=== PATIENT | male | born 1980 | race Caucasian/White ===

== ENCOUNTER 2017-10-07 10:24 | Emergency (ER) | payer MEDICAID, OTHER ==
[~2017-10-07] VITALS: Ht 170.2 cm; Wt 67.4 kg
[~2017-10-07 10:24] MED LIST: NYST1000 PO; ONDA4TAB6 PO; PANT40TA4 PO
[2017-10-07] MEDS ORDERED: ondansetron/PF 4mg/2ml inj IV ONE (11:40)
[2017-10-07] MEDS ORDERED: normal saline 1000ML IV soln IVB ONE (11:40)
[2017-10-07] MEDS ORDERED: mag hydrox/Alum hydrox/simeth 30ml oral suspension PO ONE (11:40)
[2017-10-07] MEDS ORDERED: LIDOcaine Viscous 15ml cup PO ONE (11:40)
[2017-10-07] MEDS ORDERED: ondansetron/PF 4mg/2ml inj ONE (11:50)
[2017-10-07] MEDS ORDERED: LIDOcaine Viscous 15ml cup ONE (11:50)
[2017-10-07] MEDS ORDERED: mag hydrox/Alum hydrox/simeth 30ml oral suspension ONE (11:50)
[2017-10-07 12:11] LABS: BASOPHILS % (AUTO) 0 % (0-1); EOSINOPHILS # (AUTO) 0.2 X10'3 (0-0.9); EOSINOPHILS % (AUTO) 2.5 % (0-6); HEMATOCRIT 45.2 % (42.0-52.0); HEMOGLOBIN 15.4 g/dl (14.0-17.9); LYMPHOCYTES % (AUTO) 11.7 % (21-51); MEAN CORPUSCULAR HEMOGLOBIN 29.8 PG (27.0-31.0); MEAN CORPUSCULAR HGB CONC 34.1 % (33.0-36.5); MEAN CORPUSCULAR VOLUME 87.4 FL (78-98); MEAN PLATELET VOLUME 7.2 FL (7.4-10.4); MONOCYTES # (AUTO) 0.5 X10'3 (0-0.9); MONOCYTES % (AUTO) 5.9 % (2-12); NEUTROPHILS # (AUTO) 7.1 X10'3 (1.8-7.7); NEUTROPHILS % (AUTO) 79.9 % (42-75); PLATELET COUNT 292 X10'3 (140-440); RED BLOOD COUNT 5.18 X10'6 (4.70-6.10); RED CELL DISTRIBUTION WIDTH 13.7 % (11.5-14.5); WHITE BLOOD COUNT 8.9 X10'3 (4.5-11.0)
[2017-10-07] MEDS ORDERED: OMEP40CA37 PO (12:22)
[2017-10-07] MEDS ORDERED: ONDA4TAB12 PO (12:22)
[2017-10-07] MEDS ORDERED: CIPR-230 PO (12:22)
[2017-10-07] MEDS ORDERED: ACYC400T PO (12:26)
[2017-10-07 12:31] LABS: ALANINE AMINOTRANSFERASE 78 U/L (12-78); ALKALINE PHOSPHATASE 114 IU/L (46-116); ANION GAP 13 (8-16); ASPARTATE AMINO TRANSFERASE 44 U/L (10-37); BILIRUBIN,TOTAL 0.4 MG/DL (0.1-1.0); BLOOD UREA NITROGEN 11 MG/DL (7-18); BUN/CREATININE RATIO 12.5 (5.4-32.0); CALCIUM 9.6 MG/DL (8.5-10.1); CHLORIDE 102 MMOL/L (99-107); CREATININE 0.88 MG/DL (0.60-1.10); GLUCOSE 86 MG/DL (70-104); LIPASE 141 U/L (73-393); POTASSIUM 3.9 MMOL/L (3.5-5.1); SODIUM 138 MMOL/L (135-145); TOTAL CARBON DIOXIDE 22.9 MMOL/L (24-32); TROPONIN I < 0.04 NG/ML (0.0-0.05); eGFR > 90 ML/MIN
[2017-10-07 13:09] VITALS: BP 134/82
== END 2017-10-07 13:14 | disposition home or self-care (01) ==
LOC: ER 10:24
DX: R10.13 Epigastric pain (principal); R19.7 Diarrhea, unspecified; I10 Essential (primary) hypertension; F17.210 Nicotine dependence, cigarettes, uncomplicated; F12.10 Cannabis abuse, uncomplicated; F15.10 Other stimulant abuse, uncomplicated; Z79.899 Other long term (current) drug therapy
CPT/HCPCS: 36415; 80053; 83690; 84484; 85025; 93005; 96374; 99285; J2405; J7030

== ENCOUNTER 2019-03-22 01:06 | Emergency (ER) | payer MEDICAID, OTHER ==
[~2019-03-22] VITALS: Ht 170.2 cm; Wt 70.5 kg
[~2019-03-22 01:06] MED LIST changes: +ONDA4TAB12 PO
[2019-03-22] MEDS ORDERED: proparacaine 0.5% ophthalmic drops 15ml EACHEYE ONE (01:20)
[2019-03-22] MEDS ORDERED: ofloxacin 0.33% 5ml ophthalmic drops EACHEYE SCH (02:00)
[2019-03-22] MEDS: ciprofloxacin 0.3% 2.5ml ophthalmic solution EACHEYE SCH ×2 (02:35→02:45)
[2019-03-22] MEDS ORDERED: CIPR2.5D18 EACHEYE (02:50)
--- NOTE | 2019-03-22 02:51 | NUR ---
PT ASKING FOR NOTE FOR WORK . PA PABLO AWARE.
--- NOTE | 2019-03-22 02:52 | NUR ---
ADMINISTERED CIPRO GTTS 2 TO EACH EYE ORDERED PT DISCHARGED HOME TO APPLY GTTS Q 15MIN FOR THE FIRST 6 HRS . MD AWARE THAT PT WILL NEED PRESCRIPTION IN ORDERED TO COMPLETE THE FOURTEEN DAY COURSE
[2019-03-22 03:01] VITALS: BP 148/91
== END 2019-03-22 02:48 | disposition home or self-care (01) ==
LOC: ER 01:07
DX: H16.8 Other keratitis (principal); I10 Essential (primary) hypertension; F12.90 Cannabis use, unspecified, uncomplicated; F15.90 Other stimulant use, unspecified, uncomplicated; F10.99 Alcohol use, unspecified with unspecified alcohol-induced disorder; Z79.899 Other long term (current) drug therapy; Y90.9 Presence of alcohol in blood, level not specified
CPT/HCPCS: 99283; 99284

== ENCOUNTER 2019-08-05 16:57 | Emergency (ER) | payer SELFPAY ==
[~2019-08-05] VITALS: Ht 170.2 cm; Wt 73.8 kg
[2019-08-05] MEDS ORDERED: proCHLORperazine 10 MG/2 ml inj IM ONE (18:00)
[2019-08-05] MEDS ORDERED: diphenhydrAMINE 25mg capsule PO ONE (18:00)
[2019-08-05] MEDS ORDERED: ketorolac tromethamine 15mg/ml inj. IM ONE (18:00)
[2019-08-05 19:05] VITALS: BP 136/96
== END 2019-08-05 19:08 | disposition home or self-care (01) ==
LOC: ER 16:58
DX: R51 Headache (principal); R42 Dizziness and giddiness; I10 Essential (primary) hypertension; F12.90 Cannabis use, unspecified, uncomplicated; F15.90 Other stimulant use, unspecified, uncomplicated; Z79.899 Other long term (current) drug therapy
CPT/HCPCS: 96372; 99284; J0780; J1885; Q0163

== ENCOUNTER 2019-08-07 10:04 | Emergency (ER) | payer SELFPAY ==
[~2019-08-07] VITALS: Ht 170.2 cm; Wt 71.0 kg
[2019-08-07] MEDS ORDERED: amLODIPine 5mg tablet PO ONE (10:45)
[2019-08-07] MEDS ORDERED: acetaminophen 325mg tablet PO ONE ×2 (10:45)
[2019-08-07] MEDS ORDERED: IBUP-1984 PO (10:53)
[2019-08-07] MEDS ORDERED: AMLO2.5T2 PO (10:53)
[2019-08-07 11:18] LABS: BASOPHILS # (AUTO) 0.1 X10'3 (0-0.2); BASOPHILS % (AUTO) 1.3 % (0-1); EOSINOPHILS # (AUTO) 0.2 X10'3 (0-0.9); EOSINOPHILS % (AUTO) 2.7 % (0-6); HEMATOCRIT 44.4 % (42.0-52.0); HEMOGLOBIN 15.4 g/dl (14.0-17.9); LYMPHOCYTES # (AUTO) 1.5 X10'3 (1.1-4.8); LYMPHOCYTES % (AUTO) 16.2 % (21-51); MEAN CORPUSCULAR HEMOGLOBIN 29.7 PG (27.0-31.0); MEAN CORPUSCULAR HGB CONC 34.7 g/dL (33.0-36.5); MEAN CORPUSCULAR VOLUME 85.8 FL (78-98); MEAN PLATELET VOLUME 6.6 FL (7.4-10.4); MONOCYTES # (AUTO) 0.6 X10'3 (0-0.9); NEUTROPHILS # (AUTO) 6.7 X10'3 (1.8-7.7); NEUTROPHILS % (AUTO) 72.8 % (42-75); PLATELET COUNT 413 X10'3 (140-440); RED BLOOD COUNT 5.18 X10'6 (4.70-6.10); RED CELL DISTRIBUTION WIDTH 13.7 % (11.5-14.5); WHITE BLOOD COUNT 9.2 X10'3 (4.5-11.0)
[2019-08-07 11:22] VITALS: BP 146/105
[2019-08-07 11:25] LABS: ALBUMIN 3.8 G/DL (3.4-5.0); ANION GAP 9 (8-16); BLOOD UREA NITROGEN 13 MG/DL (7-18); BUN/CREATININE RATIO 12.7 (5.4-32.0); CALCIUM 9.6 MG/DL (8.5-10.1); CHLORIDE 99 MMOL/L (99-107); CREATININE 1.02 MG/DL (0.60-1.10); GLUCOSE 95 MG/DL (70-104); POTASSIUM 4.2 MMOL/L (3.5-5.1); SODIUM 138 MMOL/L (135-145); eGFR 81 ML/MIN
== END 2019-08-07 11:53 | disposition home or self-care (01) ==
LOC: ER 10:05
DX: S09.90XA Unspecified injury of head, initial encounter (principal); I10 Essential (primary) hypertension; H92.02 Otalgia, left ear; F12.90 Cannabis use, unspecified, uncomplicated; F15.90 Other stimulant use, unspecified, uncomplicated; F17.200 Nicotine dependence, unspecified, uncomplicated; Z90.49 Acquired absence of other specified parts of digestive tract; Z79.899 Other long term (current) drug therapy; W22.8XXA Striking against or struck by other objects, initial encounter; Y93.89 Activity, other specified; Y92.89 Other specified places as the place of occurrence of the external cause; Y99.8 Other external cause status
CPT/HCPCS: 36415; 70450; 80048; 85025; 99284

== ENCOUNTER 2022-06-10 11:28 | Emergency (ER) | payer MEDICAID, OTHER ==
[~2022-06-10] VITALS: Ht 167.6 cm; Wt 72.7 kg
[~2022-06-10 11:28] MED LIST changes: +AMLO2.5T2 PO; +IBUP-1984 PO; -PANT40TA4 PO; +PANT40TA54 PO
[2022-06-10 11:39] VITALS: BP 158/99
[2022-06-10 11:57] LABS: BASOPHILS # (AUTO) 0.1 X10'3 (0-0.2); BASOPHILS % (AUTO) 1.2 % (0-1); EOSINOPHILS # (AUTO) 0.3 X10'3 (0-0.9); EOSINOPHILS % (AUTO) 3.8 % (0-6); HEMATOCRIT 41.6 % (42.0-52.0); HEMOGLOBIN 14.2 g/dl (14.0-17.9); LYMPHOCYTES # (AUTO) 2.1 X10'3 (1.1-4.8); MEAN CORPUSCULAR HEMOGLOBIN 29.4 PG (27.0-31.0); MEAN CORPUSCULAR VOLUME 86.5 FL (78-98); MEAN PLATELET VOLUME 6.5 FL (7.4-10.4); MONOCYTES # (AUTO) 0.6 X10'3 (0-0.9); MONOCYTES % (AUTO) 9.3 % (2-12); NEUTROPHILS # (AUTO) 3.8 X10'3 (1.8-7.7); NEUTROPHILS % (AUTO) 55.7 % (42-75); PLATELET COUNT 298 X10'3 (140-440); RED BLOOD COUNT 4.81 X10'6 (4.70-6.10); RED CELL DISTRIBUTION WIDTH 13.9 % (11.5-14.5); WHITE BLOOD COUNT 6.9 X10'3 (4.5-11.0)
[2022-06-10 13:02] LABS: CLARITY,URINE CLEAR (Clear); COLOR,URINE YELLOW (Yellow); GLUCOSE, URINE NEGATIVE (Neg); KETONES,URINE NEGATIVE (Neg); LEUKOCYTE ESTERASE ,URINE NEGATIVE (Neg); NITRITES, URINE NEGATIVE (Neg); OCCULT BLOOD,URINE NEGATIVE (Neg); PROTEIN,URINE NEGATIVE (Neg); UROBILINOGEN,URINE 0.2 E.U/dL (0.2-1.0)
[2022-06-10] MEDS ORDERED: normal saline 1000ml 1,000 ML IV ONE (13:10)
[2022-06-10] MEDS ORDERED: ondansetron/PF 4mg/2ml inj IV ONE (13:10)
[2022-06-10 13:14] LABS: UA COLLECTION TYPE CLN CATCH MIDSTREAM
[2022-06-10 13:15] LABS: ALANINE AMINOTRANSFERASE 103 U/L (12-78); ALBUMIN 3.8 G/DL (3.4-5.0); ALKALINE PHOSPHATASE 92 IU/L (46-116); ASPARTATE AMINO TRANSFERASE 62 U/L (10-37); BILIRUBIN,TOTAL 0.2 MG/DL (0.1-1.0); BLOOD UREA NITROGEN 16 MG/DL (7-18); BUN/CREATININE RATIO 14.5 (5.4-32.0); CHLORIDE 102 MMOL/L (99-107); LIPASE 175 U/L (73-393); TOTAL PROTEIN 7.7 G/DL (6.4-8.2); eGFR 74 ML/MIN
[2022-06-10 14:09] LABS: CALCIUM 9.4 MG/DL (8.5-10.1)
[2022-06-10 14:13] LABS: ANION GAP 4 (8-16); GLUCOSE 86 MG/DL (70-104); POTASSIUM 3.9 MMOL/L (3.5-5.1); SODIUM 138 MMOL/L (135-145)
[2022-06-10] MEDS ORDERED: SIME80TA16 PO (14:21)
[2022-06-10] MEDS ORDERED: ONDA4TAB12 PO (14:21)
== END 2022-06-10 15:14 | disposition home or self-care (01) ==
LOC: ER 11:29
DX: K52.89 Other specified noninfective gastroenteritis and colitis (principal)
CPT/HCPCS: 36415; 80053; 81003; 83690; 85025; 96374; 99283; J2405; J7030

== ENCOUNTER 2022-11-17 10:32 | Emergency (ER) | payer MEDICAID ==
[~2022-11-17] VITALS: Ht 170.2 cm; Wt 74.2 kg
[~2022-11-17 10:32] MED LIST changes: +BUPR1FIL3 SL; +NICO-687 TOP; +SIME80TA16 PO
[2022-11-17 10:52] VITALS: BP 131/86
[2022-11-17] MEDS ORDERED: PENICILLIN G BENZATHINE 2,400,000 UNIT/4 ML SYRINGE IM STA (11:36)
== END 2022-11-17 12:14 | disposition home or self-care (01) ==
LOC: ER 10:32
DX: A63.8 Other specified predominantly sexually transmitted diseases (principal); Z23 Encounter for immunization; I10 Essential (primary) hypertension; F12.10 Cannabis abuse, uncomplicated; F15.10 Other stimulant abuse, uncomplicated; Z79.899 Other long term (current) drug therapy
CPT/HCPCS: 36415; 86592; 96372; 99283; J0561

== ENCOUNTER 2022-12-16 12:20 | Emergency (ER) | payer MEDICAID ==
[~2022-12-16] VITALS: Ht 170.2 cm; Wt 64.2 kg
[2022-12-16 12:41] VITALS: BP 157/104; PULSE 98; RESP 16; TEMP 98.5; O2SAT 98
[2022-12-16] MEDS ORDERED: NAPR500T6 PO (14:59)
[2022-12-16] MEDS ORDERED: AMOX-580 PO (14:59)
== END 2022-12-16 15:10 | disposition home or self-care (01) ==
LOC: ER 12:21
DX: K08.89 Other specified disorders of teeth and supporting structures (principal); R22.0 Localized swelling, mass and lump, head; I10 Essential (primary) hypertension; F12.10 Cannabis abuse, uncomplicated; F15.10 Other stimulant abuse, uncomplicated; Z79.899 Other long term (current) drug therapy; Z79.1 Long term (current) use of non-steroidal anti-inflammatories (NSAID); Z79.2 Long term (current) use of antibiotics
CPT/HCPCS: 99283

== ENCOUNTER 2023-06-21 23:46 | Emergency (ER) | payer MEDICAID ==
[~2023-06-21] VITALS: Ht 170.2 cm; Wt 78.3 kg
[~2023-06-21 23:46] MED LIST changes: +NAPR500T6 PO
[2023-06-22] MEDS ORDERED: CefTRIAXone 1000mg IM Kit (w/lidocaine diluent) IM ONE (00:25)
[2023-06-22] MEDS ORDERED: ibuprofen tablet 400 MG TABLET PO ONE (00:25)
[2023-06-22] MEDS ORDERED: DOXY-457 PO (00:49)
[2023-06-22 01:43] VITALS: BP 122/80; PULSE 85; RESP 17; TEMP 98.7; O2SAT 98
== END 2023-06-22 01:45 | disposition home or self-care (01) ==
LOC: ER 23:46
DX: L03.114 Cellulitis of left upper limb (principal); F12.10 Cannabis abuse, uncomplicated; F15.10 Other stimulant abuse, uncomplicated; Z79.899 Other long term (current) drug therapy; Z79.1 Long term (current) use of non-steroidal anti-inflammatories (NSAID); Z79.2 Long term (current) use of antibiotics
CPT/HCPCS: 96372; 99283; J0696

== ENCOUNTER 2023-10-26 08:05 | Emergency (ER) | payer BC, MEDICAID ==
[~2023-10-26] VITALS: Ht 170.2 cm; Wt 74.0 kg
[2023-10-26 08:11] VITALS: TEMP 98.4
[2023-10-26 10:36] VITALS: PULSE 74
[2023-10-26] MEDS: HYDROcodone/acetaminophen 10/325mg tab PO ONE (10:49)
[2023-10-26] MEDS ORDERED: AMOX-117 PO (11:27)
[2023-10-26] MEDS ORDERED: HYDR-3972 PO (11:27)
[2023-10-26 11:29] VITALS: BP 128/84; RESP 14; O2SAT 100
== END 2023-10-26 11:33 | disposition home or self-care (01) ==
LOC: ER 08:05
DX: S02.32XA Fracture of orbital floor, left side, initial encounter for closed fracture (principal); S02.40DA Maxillary fracture, left side, initial encounter for closed fracture; I10 Essential (primary) hypertension; F12.90 Cannabis use, unspecified, uncomplicated; F15.90 Other stimulant use, unspecified, uncomplicated; Z79.899 Other long term (current) drug therapy; Z79.2 Long term (current) use of antibiotics; Z79.1 Long term (current) use of non-steroidal anti-inflammatories (NSAID); Z90.49 Acquired absence of other specified parts of digestive tract; X58.XXXA Exposure to other specified factors, initial encounter; Y93.89 Activity, other specified; Y92.89 Other specified places as the place of occurrence of the external cause; Y99.8 Other external cause status
CPT/HCPCS: 70486; 99285